=== PATIENT | female | born 1950 | race Caucasian/White ===

== ENCOUNTER 2018-01-03 09:20 | Day surgery (SDC) | payer BC ==
[2018-01-03] MEDS ORDERED: FENTAnyl 50 MCG/ML VIAL (11:00)
[2018-01-03] MEDS ORDERED: MIDAZOLAM 1 MG/ML 2 ML INJ ×2 (11:00)
== END 2018-01-03 12:17 | disposition home or self-care (01) ==
LOC: GIL 09:20
DX: Z12.11 Encounter for screening for malignant neoplasm of colon (principal); D12.6 Benign neoplasm of colon, unspecified; K64.8 Other hemorrhoids; I10 Essential (primary) hypertension
CPT/HCPCS: 45380; 88305